=== PATIENT | female | born 1950 | race Two or more races ===

== ENCOUNTER → 2017-02-10 | Outpatient (CLI) | payer OTHER ==
--- NOTE | ~2017-02-10 | BD1 ---
[facility] A Service of [facility] & [facility] / [facility] RADIOLOGY TEXT RESULTS PATIENT: MIRIAM DAVID LOCATION: [facility] : 52 UNIT #: [id number] AGE: [address]: YOHANA BAKER APRN SEX: F ORDER DR: [id number] [facility] [address] [place], [place] [address] [id number] O MR#: [id number] Acc #: [id number] NAME: MIRIAM DAVID : 1950 SEX: F STUDY DATE/TIME: 02/10/2017 13:59 UNIT: US ROOM: STUDY DESCRIPTION: BD Dexa Bone Dens 1+ Site Attending Physician: Yohana Baker Ordering Physician: Alin Baker M.D. Primary Care Physician: Scott Kapadia M.D. MEDICAL IMAGING REPORT This report is preliminary unless electronic signature is present EXAM DXA scan 02/10/2017 HISTORY Status post menopause with no hormone replacement therapy. Osteopenia. Hysterectomy at age 66. Fracture of hand in last 10 years. FINDINGS Bone mineral density in the lumbar spine from L1-L4 is 0.537 g/cm2 which is 4.6 standard deviations below the mean when compared to the young adult reference population which is characteristic of osteoporosis. This is 2.9 standard deviations below the mean when compared to the age-matched population. Bone mineral density in the left femoral neck was 0.555 g/cm2 which is 2.6 standard deviations below the mean when compared to the young adult reference population which is characteristic of osteoporosis. This is 1.3 standard deviations below the mean when compared to the age-matched population. IMPRESSION Bone mineral density in the lumbar spine and left hip characteristic of osteoporosis. Dictated by... Junaid Dave M.D. THIS IS AN ELECTRONICALLY VERIFIED REPORT Junaid Dave M.D. at 02/13/2017 12:47 PM KRT/pcl TD: 02/10/2017 20:52 JOB #: [id number] STS. [facility] A Service of [facility] & [facility] / [facility] RADIOLOGY TEXT RESULTS PATIENT: MIRIAM DAVID LOCATION: [facility] #: [id number] : 52 UNIT #: [id number] AGE: [address]: YOHANA BAKER APRN SEX: F ORDER DR: MEDICAL IMAGING REPORT Page 1 of 1 COPY
--- NOTE | ~2017-02-10 | US116 ---
[facility] A Service of [facility] & [facility] RADIOLOGY TEXT RESULTS PATIENT: MIRIAM DAVID LOCATION: [facility] : 52 UNIT #: [id number] AGE: [address]: CHILO BAKER APRN SEX: F ORDER DR: [id number] [facility] [address] [place], [place] [address] [id number] O MR#: [id number] Acc #: [id number] NAME: MIRIAM DVAID : 1950 SEX: F STUDY DATE/TIME: 02/10/2017 14:01 UNIT: [facility] ROOM: STUDY DESCRIPTION: US Soft Tissue Head/Neck Attending Physician: Alin Baker M.D. Ordering Physician: Alin Baker M.D. Primary Care Physician: Scott Kapadia M.D. MEDICAL IMAGING REPORT This report is preliminary unless electronic signature is present EXAM Soft tissue neck ultrasound HISTORY Swelling on left side of the neck for years. Complains of palpable area lateral left neck. FINDINGS Ultrasound of the area of complaint did not show any solid lesions. Nearby are some small normal appearing lymph nodes with normal fatty jeet. They measure less than a centimeter in diameter. IMPRESSION No mass identified in the region the patient believes he has a palpable lump in the left side of the neck. Normal lymph nodes are seen. Clinical followup is recommended. If further evaluation is desired, neck CT scan could be performed. Dictated by... Romario Fallon M.D. THIS IS AN ELECTRONICALLY VERIFIED REPORT Romario Fallon M.D. at 02/22/2017 3:38 AM COLLEEN/john TD: 02/13/2017 21:10 JOB #: [id number] MEDICAL IMAGING REPORT Page 1 of 1 COPY
--- NOTE | ~2017-02-10 | MY11 ---
[facility] A Service [facility] RADIOLOGY TEXT RESULTS PATIENT: MIRIAM DAVID LOCATION: [facility] : 52 UNIT #: [id number] AGE: [address]: CHILO BAKER APRN SEX: F ORDER DR: [id number] [place], [place] [address] [id number] O MR#: [id number] Acc #: [id number] NAME: MIRIAM DAVID : 1950 SEX: F STUDY DATE/TIME: 02/10/2017 13:32 UNIT: [facility] ROOM: STUDY DESCRIPTION: MY Mammogram Screening Dig Xavi Attending Physician: Alin Baker M.D. Ordering Physician: Alin Baker M.D. Primary Care Physician: Scott Kapadia M.D. MEDICAL IMAGING REPORT This report is preliminary unless electronic signature is present EXAMINATION Bilateral digital screening mammogram with CAD. DATE 02/10/2017 HISTORY 66-year-old female with no personal or family history of breast cancer or current complaints. COMPARISON None. This is patient's baseline screening study. FINDINGS CC and MLO views were obtained of each breast utilizing digital technique and reviewed with an FDA-approved CAD device. Scattered fibroglandular densities are present bilaterally. No focal suspicious nodule, mass or architectural distortion is identified. No abnormal skin thickening or nipple retraction is evident. IMPRESSION BIRADS 1. Negative screening mammogram. Routine screening mammogram is recommended in 1 year. Patients over the age of 40 are entered into a reminder system with target due date for the next mammogram. A result letter will also be sent to the patient. BIRADS: 1 Negative. [facility] A Service [facility] RADIOLOGY TEXT RESULTS PATIENT: MIRIAM DAVID LOCATION: [facility] : 52 UNIT #: [id number] AGE: [address]: CHILO BAKER APRN SEX: F ORDER DR: Dictated by... Amy Putnam M.D. THIS IS AN ELECTRONICALLY VERIFIED REPORT Amy Putnam M.D. at 02/15/2017 8:44 AM EPI/eliza TD: 02/10/2017 21:37 JOB #: [id number] MEDICAL IMAGING REPORT Page 1 of 1 COPY
== END | disposition home or self-care (01) ==
LOC: CGUS 13:00
DX: Z12.31 Encounter for screening mammogram for malignant neoplasm of breast (principal); Z13.820 Encounter for screening for osteoporosis; R22.1 Localized swelling, mass and lump, neck; Z78.0 Asymptomatic menopausal state
CPT/HCPCS: 76536; 77080; G0202